=== PATIENT | male | born 1975 | race Caucasian/White ===

== ENCOUNTER 2022-08-24 17:35 | Emergency (ER) | payer OTHER ==
[~2022-08-24] VITALS: Ht 182.9 cm; Wt 88.5 kg
[~2022-08-24 17:35] MED LIST: CEPH500 PO; OXYACE5T PO
== END 2022-08-24 19:20 | disposition home or self-care (01) ==
LOC: ER 17:35
DX: S61.212A Laceration without foreign body of right middle finger without damage to nail, initial encounter (principal); S61.214A Laceration without foreign body of right ring finger without damage to nail, initial encounter; V29.888A Rider (driver) (passenger) of other motorcycle injured in other specified transport accidents, initial encounter; Z23 Encounter for immunization
CPT/HCPCS: 73130; 90714